=== PATIENT | female | born 1960 | race Caucasian/White ===

== ENCOUNTER 2018-03-30 13:06 | Inpatient (IN) | payer SELFPAY ==
[~2018-03-30 13:06] MED LIST: SUCCINYLCHOLINE CHLORIDE INJ 200 MG/10 ML VIAL ONE
[2018-03-30] MEDS ORDERED: ONDANSETRON HCL INJ/PF 4 MG/2 ML SDV IV ONE (15:21)
[2018-03-30] MEDS ORDERED: MORPHINE SULFATE 10 MG/ML INJ IV ONE (15:21)
[2018-03-30] MEDS ORDERED: NORMAL SALINE 1000 ML 1,000 ML IV ONE ×2 (15:21→19:56)
--- NOTE | 2018-03-30 15:23 | ER Document Report ---
ED Medical Screen (RME) - General Chief Complaint: Rectal Bleeding Stated Complaint: ABDOMINAL/BACK PAIN Time Seen by Provider: 03/30/18 15:15 Mode of Arrival: Wheelchair Information source: Patient Notes: Patient is a 57-year-old female who presents with chief complaint of left lower quadrant and left flank pain that started at 3 AM. Patient reports it has progressively gotten worse through the day. Patient denies any constipation, reports normal bowel movement yesterday but reports that it was dark in color. Patient denies any history of hemorrhoids. Patient reports when she urinated today she saw some bright red blood on the toilet paper she believes this was from her rectum. Patient also reports associated nausea and vomiting. Patient denies any history of abdominal surgeries, denies any fever. Patient also reports that she is having some urgency and frequency but denies any dysuria. Exam: Left CVA tenderness. I have greeted and performed a rapid initial assessment of this patient. A comprehensive ED assessment and evaluation of the patient, analysis of test results and completion of the medical decision making process will be conducted by additional ED providers. Dictation of this chart was performed using voice recognition software; therefore, there may be some unintended grammatical errors. TRAVEL OUTSIDE OF THE [place] IN LAST 30 DAYS: No - Related Data Allergies/Adverse Reactions: sulfamethoxazole [From [facility]] Allergy (Verified 03/30/18 13:09) trimethoprim [From [facility]] Allergy (Verified 03/30/18 13:09) Past Medical History - Social History Chew tobacco use (# tins/day): No Frequency of alcohol use: None Drug Abuse: None Pulmonary Medical History: Reports: Hx COPD Renal/ Medical History: Denies: Hx Peritoneal Dialysis Psychiatric Medical History: Reports: Hx Bipolar Disorder, Hx Depression Physical Exam - Vital signs Vitals: Temp Pulse Resp BP Pulse Ox 97.5 F 123 H 20 183/98 H 94 03/30/18 13:55 03/30/18 13:55 03/30/18 13:55 03/30/18 13:55 03/30/18 13:55 Course - Vital Signs Vital signs: Temp Pulse Resp BP Pulse Ox 97.5 F 123 H 20 183/98 H 94 03/30/18 13:55 03/30/18 13:55 03/30/18 13:55 03/30/18 13:55 03/30/18 13:55
[2018-03-30 16:25] LABS: ABSOLUTE LYMPHOCYTES (AUTO) 2.7 10^3/uL (0.5-4.7); ABSOLUTE MONOCYTES (AUTO) 0.9 10^3/uL (0.1-1.4); ABSOLUTE NEUT (AUTO) 13.7 10^3/uL (1.7-8.2); BASOPHILS % (AUTO) 0.2 % (0-2); EOSINOPHILS % (AUTO) 0.1 % (0-6); HEMATOCRIT 41.8 % (36.0-47.0); LYMPHOCYTES % (AUTO) 15.6 % (13-45); MEAN CORPUSCULAR HEMOGLOBIN 29.1 pg (27.0-33.4); MEAN CORPUSCULAR HGB CONC 33.6 g/dL (32.0-36.0); MEAN CORPUSCULAR VOLUME 87 fl (80-97); MONOCYTES % (AUTO) 5.2 % (3-13); PLATELET COUNT 417 10^3/uL (150-450); RED BLOOD COUNT 4.83 10^6/uL (3.72-5.28); RED CELL DISTRIBUTION WIDTH 14.9 % (11.5-14.0); SEGMENTED NEUTROPHILS % (AUTO) 78.9 % (42-78); TOTAL CELLS COUNTED % (AUTO) 100 %; WHITE BLOOD COUNT 17.3 10^3/uL (4.0-10.5)
[2018-03-30 16:47] LABS: ALANINE AMINOTRANSFERASE 38 U/L (9-52); ALBUMIN 5.1 g/dL (3.5-5.0); ALKALINE PHOSPHATASE 137 U/L (38-126); ANION GAP 15 (5-19); ASPARTATE AMINO TRANSFERASE 32 U/L (14-36); BILIRUBIN,DIRECT 0.3 mg/dL (0.0-0.4); BILIRUBIN,TOTAL 0.7 mg/dL (0.2-1.3); BLOOD UREA NITROGEN 16 mg/dL (7-20); CALCIUM 10.6 mg/dL (8.4-10.2); CARBON DIOXIDE 18 mmol/L (22-30); CHLORIDE 107 mmol/L (98-107); GLUCOSE 123 mg/dL (75-110); LIPASE 172.2 U/L (23-300); POTASSIUM 4.8 mmol/L (3.6-5.0); SODIUM 140.1 mmol/L (137-145); TOTAL PROTEIN 7.9 g/dL (6.3-8.2)
[2018-03-30] MEDS ORDERED: FENTANYL CITRATE INJ/PF 100 MCG/2 ML AMPUL IV ONE (17:11)
--- NOTE | 2018-03-30 19:18 | RADIOLOGY REPORT (SQ) ---
EXAM DESCRIPTION: CT ABD/PELVIS WITH IV ONLY COMPLETED DATE/TIME: 03/30/2018 6:38 pm REASON FOR STUDY: LLQ pain, elevated WBC COMPARISON: None. TECHNIQUE: CT scan of the abdomen and pelvis performed using helical scanning technique with dynamic intravenous contrast injection. No oral contrast. Images reviewed with lung, soft tissue, and bone windows. Reconstructed coronal and sagittal MPR images reviewed. Delayed images for evaluation of the urinary system also acquired. All images stored on PACS. All CT scanners at this facility use dose modulation, iterative reconstruction, and/or weight based d osing when appropriate to reduce radiation dose to as low as reasonably achievable (ALARA). [facility]: Dose Right [facility]: CareDose [facility]: Dose Right [facility]: Teradose 4D [facility]: Nursenav CONTRAST TYPE AND DOSE: contrast/concentration: Isovue 350.00 mg/ml; Total Contrast Delivered: 85.0 ml; Total Saline Delivered: 69.0 ml RENAL FUNCTION: Creatinine 0.9 RADIATION DOSE: CT Rad equipment meets quality standard of care and radiation dose reduction techniq ues were employed. CTDIvol: 10.8 - 15.7 mGy. DLP: 1454 mGy-cm.. LIMITATIONS: None. FINDINGS: An 8 mm calculus is present in the left proximal ureter at about the level of the L3-4 dis c space. This causes moderate left hydronephrosis and hydroureter with perinephric stranding. Stone is best shown on coronal image 44 and axial image 47. Elsewhere in the left kidney, several tiny less than 3 mm intrarenal nonobstructive calculi are prese nt with a 1 cm left lower pole renal cortical. No left renal masses. No other ureteral stones on th e left. LOWER CHEST: Small hiatal hernia. LIVER: Normal size. No masses. No dilated ducts. SPLEEN: Normal size. No focal lesions. PANCREAS: No masses. No significant calcifications. No adjacent inflammation or peripancreatic fluid collections. Pancreatic duct not dilated. GALLBLADDER: No identified stones by CT criteria. No inflammatory changes to suggest cholecystitis. ADRENAL GLANDS: No significant masses or asymmetry. RIGHT KIDNEY AND URETER: No solid masses. Multiple right-sided intrarenal nonobstructive calculi 5 mm in size. No hydronephrosis or hydroureter. LEFT KIDNEY AND URETER: As above AORTA AND VESSELS: No aneurysm. No dissection. Renal arteries, SMA, celiac without stenosis. RETROPERITONEUM: No retroperitoneal adenopathy, hemorrhage or masses. BOWEL AND PERITONEAL CAVITY: No masses or inflammatory changes. No free fluid or peritoneal masses. APPENDIX: Normal. PELVIS: No mass. No free fluid. Normal bladder. ABDOMINAL WALL: No masses. No hernias. BONES: No significant or acute findings. OTHER: No other significant finding. IMPRESSION: 8 mm stone in the left proximal ureter causing moderate left hydronephrosis and hydroure ter. TECHNICAL DOCUMENTATION: JOB ID: [id number] Quality ID # [id number]: Final reports with documentation of one or more dose reduction techniques (e.g., Au tomated exposure control, adjustment of the mA and/or kV according to patient size, use of iterative reconstruction technique) 2010 [employer]- All Rights Reserved Reading location - IP/workstation name: [email or web address]
[2018-03-30] MEDS ORDERED: TAMSULOSIN HCL 0.4 MG CAP.SR.24H PO ONE (19:49)
[2018-03-30] MEDS ORDERED: KETOROLAC TROMETHAMINE INJ/PF 30 MG/1 ML SDV IV ONE (19:50)
--- NOTE | 2018-03-30 19:56 | ER Document Report ---
ED General - General Chief Complaint: Rectal Bleeding Stated Complaint: ABDOMINAL/BACK PAIN Time Seen by Provider: 03/30/18 15:15 Mode of Arrival: Wheelchair Information source: Patient Notes: 57-year-old female with COPD, bipolar disorder, depression presents with complaint of left flank and left lower quadrant pain that started 15 hours prior to arrival. Patient states that the flank pain started initially with gradual progression of radiation to the left lower quadrant. She describes it as a constant stabbing pain that intermittently worsens. Patient has had nausea without vomiting. She denies any fever, chills, chest pain, shortness of breath. She does admit to urinary frequency, urgency. She denies previous history of kidney stone. Patient states that she has taking Pepto-Bismol, Gas-X , Dramamine without relief. She has had prior similar symptoms about 2 months ago that self resolved. TRAVEL OUTSIDE OF THE [place] IN LAST 30 DAYS: No - HPI Onset: Yesterday Onset/Duration: Sudden, Persistent, Worse Quality of pain: Stabbing Severity: Moderate Associated symptoms: Nausea. denies: Chest pain, Fever, Shortness of breath Exacerbated by: Movement Relieved by: Denies Similar symptoms previously: Yes Recently seen / treated by doctor: No - Related Data Allergies/Adverse Reactions: sulfamethoxazole [From ] Allergy (Verified 03/30/18 13:09) trimethoprim [From [facility]] Allergy (Verified 03/30/18 13:09) Past Medical History - General Information source: Patient - Social History Smoking Status: Current Every Day Smoker Chew tobacco use (# tins/day): No Frequency of alcohol use: None Drug Abuse: None Lives with: Family Family History: Reviewed & Not Pertinent Patient has suicidal ideation: No Patient has homicidal ideation: No Pulmonary Medical History: Reports: Hx COPD Renal/ Medical History: Denies: Hx Peritoneal Dialysis Psychiatric Medical History: Reports: Hx Bipolar Disorder, Hx Depression Review of Systems - Review of Systems Notes: REVIEW OF SYSTEMS: CONSTITUTIONAL : Denies fever, chills, or sweats. Denies recent illness. Denies weight loss, recent hospitalizations. EENT: Denies visual changes, eye pain. Denies sore throat, oral lesions, difficulty swallowing. CARDIOVASCULAR: Denies chest pain. Denies palpitations. Denies lower extremity edema. RESPIRATORY: Denies cough. Denies shortness of breath, wheezing. GASTROINTESTINAL: Denies vomiting, or diarrhea. Denies blood in vomitus, stools, or per rectum. Denies black, tarry stools. Denies constipation. GENITOURINARY: Denies difficulty urinating, painful urination, blood in urine , or vaginal discharge. MUSCULOSKELETAL: Denies neck pain or stiffness. Denies joint pain or swelling. SKIN: Denies rash, lesions or sores. HEMATOLOGIC : Denies easy bruising or bleeding. LYMPHATIC: Denies swollen glands. NEUROLOGICAL: Denies confusion or altered mental status. Denies loss of consciousness. Denies dizziness or lightheadedness. Denies headache. Denies weakness or paralysis. Denies problems difficulty with ambulation, slurred speech. Denies sensory loss, numbness, or tingling. Denies seizures. PSYCHIATRIC: Denies anxiety or stress. Denies depression, suicidal ideation, or homicidal ideation. Denies visual or auditory hallucinations. Physical Exam - Vital signs Vitals: Temp Pulse Resp BP Pulse Ox 97.5 F 123 H 20 183/98 H 94 03/30/18 13:55 03/30/18 13:55 03/30/18 13:55 03/30/18 13:55 03/30/18 13:55 - Notes Notes: PHYSICAL EXAMINATION: GENERAL: Well-appearing, well-nourished and in no acute distress. HEAD: Atraumatic, normocephalic. EYES: Pupils equal round and reactive to light, extraocular movements intact, conjunctiva are normal. ENT: Nares patent, oropharynx clear without exudates. Moist mucous membranes. NECK: Normal range of motion, supple without lymphadenopathy LUNGS: Breath sounds clear to auscultation bilaterally and equal. No wheezes rales or rhonchi. HEART: Regular rate and rhythm without murmurs ABDOMEN: Lower quadrant tender with palpation.. No guarding, no rebound. No masses appreciated. Left CVA tenderness. Female : deferred Musculoskeletal: Normal range of motion, no pitting or edema. No cyanosis. NEUROLOGICAL: Cranial nerves grossly intact. Normal speech, normal gait. Normal sensory, motor exams PSYCH: Normal mood, normal affect. SKIN: Warm, Dry, normal turgor, no rashes or lesions noted. Course - Re-evaluation Re-evalutation: Laboratory 03/30/18 03/30/18 03/30/18 15:26 15:26 15:46 WBC 17.3 H RBC 4.83 Hgb 14.0 Hct 41.8 MCV 87 MCH 29.1 MCHC 33.6 RDW 14.9 H Plt Count 417 Seg Neutrophils % 78.9 H Lymphocytes % 15.6 Monocytes % 5.2 Eosinophils % 0.1 Basophils % 0.2 Absolute Neutrophils 13.7 H Absolute Lymphocytes 2.7 Absolute Monocytes 0.9 Absolute Eosinophils 0.0 Absolute Basophils 0.0 PT INR APTT Sodium 140.1 Potassium 4.8 Chloride 107 Carbon Dioxide 18 L Anion Gap 15 BUN 16 Creatinine 0.90 Est GFR ( Amer) > 60 Est GFR (Non-Af Amer) > 60 Glucose 123 H Calcium 10.6 H Total Bilirubin 0.7 Direct Bilirubin 0.3 Neonat Total Bilirubin Not Reportable Neonat Direct Bilirubin Not Reportable Neonat Indirect Bili Not Reportable AST 32 ALT 38 Alkaline Phosphatase 137 H Total Protein 7.9 Albumin 5.1 H Lipase 172.2 Urine Color MATT Urine Appearance TURBID Urine pH 5.0 Ur Specific [place] 1.032 Urine Protein 100 H Urine Glucose (UA) NEGATIVE Urine Ketones NEGATIVE Urine Blood NEGATIVE Urine Nitrite NEGATIVE Urine Bilirubin NEGATIVE Urine Urobilinogen NEGATIVE Ur Leukocyte Esterase TRACE H Urine WBC (Auto) 4 Urine RBC (Auto) 18 U Hyaline Cast (Auto) 3 Squamous Epi Cells Auto 1 Calcium Oxalate Cr Auto TOO NUMEROUS TO CNT Urine Mucus (Auto) FEW Urine Ascorbic Acid 40 H Urine Opiates Screen Urine Methadone Screen Ur Barbiturates Screen Ur Phencyclidine Scrn Ur Amphetamines Screen U Benzodiazepines Scrn Urine Cocaine Screen U Marijuana (THC) Screen 03/30/18 03/30/18 15:46 21:16 WBC RBC Hgb Hct MCV MCH MCHC RDW Plt Count Seg Neutrophils % Lymphocytes % Monocytes % Eosinophils % Basophils % Absolute Neutrophils Absolute Lymphocytes Absolute Monocytes Absolute Eosinophils Absolute Basophils PT 13.4 INR 0.97 APTT 27.9 Sodium Potassium Chloride Carbon Dioxide Anion Gap BUN Creatinine Est GFR ( Amer) Est GFR (Non-Af Amer) Glucose Calcium Total Bilirubin Direct Bilirubin Neonat Total Bilirubin Neonat Direct Bilirubin Neonat Indirect Bili AST ALT Alkaline Phosphatase Total Protein Albumin Lipase Urine Color Urine Appearance Urine pH Ur Specific [place] Urine Protein Urine Glucose (UA) Urine Ketones Urine Blood Urine Nitrite Urine Bilirubin Urine Urobilinogen Ur Leukocyte Esterase Urine WBC (Auto) Urine RBC (Auto) U Hyaline Cast (Auto) Squamous Epi Cells Auto Calcium Oxalate Cr Auto Urine Mucus (Auto) Urine Ascorbic Acid Urine Opiates Screen NEGATIVE Urine Methadone Screen NEGATIVE Ur Barbiturates Screen NEGATIVE Ur Phencyclidine Scrn NEGATIVE Ur Amphetamines Screen NEGATIVE U Benzodiazepines Scrn NEGATIVE Urine Cocaine Screen NEGATIVE U Marijuana (THC) Screen NEGATIVE Abdomen/Pelvis CT 03/30/18 17:10 IMPRESSION: 8 mm stone in the left proximal ureter causing moderate left hydronephrosis and hydroureter. 57-year-old female presents with complaint of left flank and left lower quadrant pain that started 1 day prior to arrival. Patient had associated nausea without vomiting. Vital signs reviewed upon arrival and patient is found to be mildly tachycardic but afebrile and not hypoxic. Patient does appear to be in significant pain. CBC does show a leukocytosis of 17. CMP is without any significant laboratory abnormalities. Urinalysis shows no infection. CT of the abdomen and pelvis does show an 8 mm stone in the proximal ureter causing moderate hydronephrosis and hydroureter. Patient received fentanyl, Toradol, Flomax, IV fluids. EKG was obtained prior to transfer to the OR. Patient accepted by the hospitalist for admission and transferred to the OR in stable condition. Last food intake was greater than 12 hours prior to arrival. 03/30/18 20:[address] Eid urology physical integration practitioner who agrees to consult on the patient. He states that he will call the OR to arrange for stent placement. Patient has been accepted by the hospitalist Dr. Godfrey 03/31/18 04:26 03/31/18 04:26 03/31/18 04:28 - Vital Signs Vital signs: Temp Pulse Resp BP Pulse Ox 98.3 F 105 H 18 119/77 98 03/31/18 01:34 03/31/18 01:34 03/31/18 01:34 03/31/18 01:34 03/31/18 01:34 - Laboratory Result Diagrams: 03/30/18 15:26 03/30/18 15:26 Laboratory results interpreted by me: 03/30/18 03/30/18 03/30/18 15:26 15:26 15:46 WBC 17.3 H RDW 14.9 H Seg Neutrophils % 78.9 H Absolute Neutrophils 13.7 H Carbon Dioxide 18 L Glucose 123 H Calcium 10.6 H Alkaline Phosphatase 137 H Albumin 5.1 H Urine Protein 100 H Ur Leukocyte Esterase TRACE H Urine Ascorbic Acid 40 H - Diagnostic Test Radiology reviewed: Image reviewed, Reports reviewed - EKG Interpretation by Me EKG shows normal: Sinus rhythm Rate: Normal Rhythm: NSR Discharge - Discharge Clinical Impression: Hydroureter, Calcium urolithiasis, Flank pain, Tachycardia Hydronephrosis Qualifiers: Hydronephrosis type: unspecified Qualified Code(s): N13.30 - Unspecified hydronephrosis Hypertension Qualifiers: Hypertension type: unspecified Qualified Code(s): I10 - Essential (primary) hypertension Leukocytosis Qualifiers: Leukocytosis type: unspecified Qualified Code(s): D72.829 - Elevated white blood cell count, unspecified Condition: Good Disposition: ADMITTED OBSERVATION Admitting Provider: Hospitalist Unit Admitted: Surgical Floor
[2018-03-30 20:15] LABS: APPEARANCE,URINE TURBID; BILIRUBIN,URINE NEGATIVE (NEGATIVE); CALCIUM OXALATE CRYSTALS,URINE TOO NUMEROUS TO CNT /HPF; COLOR,URINE AMBER; GLUCOSE, URINE NEGATIVE (NEGATIVE); KETONES,URINE NEGATIVE (NEGATIVE); LEUKOCYTE ESTERASE,URINE TRACE (NEGATIVE); NITRITE,URINE NEGATIVE (NEGATIVE); PROTEIN,URINE 100 mg/dL (NEGATIVE); URINE SPECIFIC GRAVITY 1.032; UROBILINOGEN,URINE NEGATIVE mg/dL (<2.0)
[2018-03-30] MEDS ORDERED: OXYCODONE-ACETAMINOPHEN 5-325 MG TABLET PO PRN (21:06)
[2018-03-30] MEDS ORDERED: NORMAL SALINE 1000 ML 1,000 ML IV PRN (21:06)
[2018-03-30] MEDS ORDERED: PROMETHAZINE HCL INJ 25 MG/1 ML VIAL IV PRN ×2 (21:06→22:59)
[2018-03-30] MEDS ORDERED: PROMETHAZINE HCL 25 MG TABLET PO PRN (21:06)
[2018-03-30] MEDS ORDERED: MAG HYDROX/AL HYDROX/SIMETH SUSP 30 ML UDCUP PO PRN (21:06)
[2018-03-30] MEDS ORDERED: KETOROLAC TROMETHAMINE INJ/PF 30 MG/1 ML SDV IV PRN (21:13)
[2018-03-30 21:30] LABS: INTERNATIONAL RATION (INR) 0.97; PARTIAL THROMBOPLASTIN TIME 27.9 SEC (23.5-35.8); PROTHROMBIN TIME 13.4 SEC (11.4-15.4)
--- NOTE | 2018-03-30 21:33 | PDOC H&P ---
History of Present Illness Admission Date/PCP: 03/30/18 20:53 Patient complains of: abdominal pain History of Present Illness: GIOVANY ENGEL is a 57 year old female who comes to the emergency department complaining of left flank pain and abdominal pain. Patient tells me that she woke up at 2 in the morning with left flank pain radiated to the left lower quadrant, cramping nature, went up to 10/10 intensity, initially felt like gas pain, she had Gas-X in the morning, the pain did not improved. At some point the pain was so intense that she could not stand up could not lay down. Symptoms were associated with dysuria and frequency for the last 2 days, denies hematuria. Denies any history of kidney stones. CT abdomen and pelvis in the ED shows 8 mm left kidney stone in the proximal ureter with hydronephrosis. Dr. Eid from the urology department is aware of the patient and will come and take her to the OR overnight. Denies fever, chills, shortness of breath, chest pain, dizziness, lightheadedness. Tells me that she had one melanotic stool 2 days ago around 4 PM, semisolid, denies any history of GI bleeding, hemoglobin and hematocrit this is stable. 2 L of IV fluids given in the ED. Urinalysis positive for infection. Past Medical History Cardiac Medical History: Reports: Myocardial Infarction - Massive SD secondary to drug overdose, no stents placed Pulmonary Medical History: Reports: Chronic Obstructive Pulmonary Disease (COPD) Psychiatric Medical History: Reports: Bipolar Disorder, Depression Past Surgical History Past Surgical History: Reports: Other - Cataract surgery Social History Information Source: Patient Lives with: Family Smoking Status: Current Every Day Smoker - Patient quit smoking for 7 years, resume smoking habit, 1 pack last for 7 days Frequency of Alcohol Use: Occasional Hx Recreational Drug Use: Yes Drugs: Cocaine - Crack cocaine, denies IV drug abuse. Quit 15 years ago Family History Family History: Reviewed & Not Pertinent Parental Family History Reviewed: No Children Family History Reviewed: NA Sibling(s) Family History Reviewed.: NA Medication/Allergy Home Medications: Lamotrigine 100 mg PO BID 12/10/14 Mirtazapine 30 mg PO PRN PRN 12/10/14 Prochlorperazine Maleate [Compazine] 5 mg PO BID PRN 12/10/14 Quetiapine Fumarate [Seroquel] 25 mg PO PRN PRN 12/10/14 Quetiapine Fumarate [Seroquel] 300 mg PO DAILYP 12/10/14 Venlafaxine HCl [Effexor 75 mg Tablet] 75 mg PO DAILY 12/10/14 Venlafaxine HCl [Effexor 75 mg Tablet] 150 mg PO DAILY 12/10/14 Ciprofloxacin HCl [Cipro 500 mg Tablet] 500 mg PO BID #6 tablet 12/13/14 Hydroxyzine Pamoate [Vistaril 50 mg Capsule] 50 mg PO Q6HP PRN #30 capsule 12/13 Mirtazapine [Remeron 15 mg Tablet] 15 mg PO Q12H #30 tablet 12/13/14 Allergies/Adverse Reactions: sulfamethoxazole [From [facility]] Allergy (Verified 03/30/18 13:09) trimethoprim [From [facility]] Allergy (Verified 03/30/18 13:09) Review of Systems Review of Systems: As outlined in the HPI, others negative Physical Exam Vital Signs: Temp Pulse Resp BP Pulse Ox 97.5 F 123 H 20 183/98 H 94 03/30/18 13:55 03/30/18 13:55 03/30/18 13:55 03/30/18 13:55 03/30/18 13:55 Additional comments: General appearance: Well-developed, well-nourished, alert and cooperative, and appears to be in no acute distress Head: Normocephalic Eyes: PEERL, EOMI, vision is grossly intact. Ears: External auditory canal and tympanic membranes clear, hearing grossly intact. Nose: No nasal discharge. Throat: Oral cavity and pharynx normal. No inflammation, swelling, exudate or lesions. Neck: Neck supple, nontender without lymphadenopathy, masses or thyromegaly. Cardiac: Normal S1 and S2. No S3, S4 or murmurs. Rhythm is regular. There is no peripheral edema, cyanosis or pallor. Extremities are warm and well perfused. Capillary refill is less than 2 seconds. No carotid bruits. Lungs: Clear to auscultation and percussion without rales, rhonchi, wheezing or diminished breath sounds. Not using accessory muscles. Abdomen: Positive bowel sounds. Soft. Nondistended, tenderness in the left infraumbilical area. No guarding or rebound. No masses. No hepatosplenomegaly. Mild CVA tenderness in the left flank. Extremities: No significant deformity or joint abnormality. No edema. Peripheral pulses intact. No varicosities. Neurological: Cranial nerves II through XII grossly intact. Strength and sensation symmetric and intact throughout. Reflexes 2+ throughout. Skin: Skin normal color, texture and turgor with no lesions or eruptions, warm and dry. Psychiatric: The mental examination revealed the patient was oriented to person , place, and time. The patient was able to demonstrate good judgment on recent , without hallucinations, abnormal affect or abnormal behaviors. Results Laboratory Results: 03/30/18 03/30/18 03/30/18 15:26 15:26 15:46 WBC 17.3 H RBC 4.83 Hgb 14.0 Hct 41.8 MCV 87 MCH 29.1 MCHC 33.6 RDW 14.9 H Plt Count 417 Seg Neutrophils % 78.9 H Lymphocytes % 15.6 Monocytes % 5.2 Eosinophils % 0.1 Basophils % 0.2 Absolute Neutrophils 13.7 H Absolute Lymphocytes 2.7 Sodium 140.1 Potassium 4.8 Chloride 107 Carbon Dioxide 18 L Anion Gap 15 BUN 16 Creatinine 0.90 Est GFR ( Amer) > 60 Est GFR (Non-Af Amer) > 60 Glucose 123 H Calcium 10.6 H Total Bilirubin 0.7 Direct Bilirubin 0.3 AST 32 ALT 38 Alkaline Phosphatase 137 H Total Protein 7.9 Albumin 5.1 H Lipase 172.2 Urine Color MATT Urine Appearance TURBID Urine pH 5.0 Ur Specific [place] 1.032 Urine Protein 100 H Urine Glucose (UA) NEGATIVE Urine Ketones NEGATIVE Urine Blood NEGATIVE Urine Nitrite NEGATIVE Urine Bilirubin NEGATIVE Urine Urobilinogen NEGATIVE Ur Leukocyte Esterase TRACE H Urine WBC (Auto) 4 Urine RBC (Auto) 18 U Hyaline Cast (Auto) 3 Squamous Epi Cells Auto 1 Calcium Oxalate Cr Auto TOO NUMEROUS TO CNT Urine Mucus (Auto) FEW Urine Ascorbic Acid 40 H Impressions: Abdomen/Pelvis CT 03/30/18 17:10 IMPRESSION: 8 mm stone in the left proximal ureter causing moderate left hydronephrosis and hydroureter. Assessment & Plan - Diagnosis (1) Calculus of left kidney Is this a current diagnosis for this admission?: Yes Plan: Patient comes with sudden symptoms since starting the morning. Complains of left flank pain radiated to the left lower quadrant, images consistent with a millimeters left ureteral stone. Dr. Eid from the urology department [facility] We will keep her on IV fluids. IV Rocephin. IV antiemetics and pain medication as needed. (2) UTI (urinary tract infection) Qualifiers: Hematuria presence: with hematuria Is this a current diagnosis for this admission?: Yes Plan: Patient will continue on IV Rocephin. Please follow urine cultures. (3) Melena Is this a current diagnosis for this admission?: Yes Plan: Patient states that 2 days ago she had an episode of large melanotic stools/ tarry stools. The patient does not have any history of GI bleeding and her hemoglobin and hematocrit are stable. We will send stool guaiac. No further intervention for now. Will recheck CBC in the morning. - Time Time Spent: 30 to 50 Minutes - Inpatient Certification Based on my medical assessment, after consideration of the patient's comorbidities, presenting symptoms, or acuity I expect that the services needed warrant INPATIENT care.: Yes I certify that my determination is in accordance with my understanding of Medicare's requirements for reasonable and necessary INPATIENT services [42 CFR 412.3e].: Yes Medical Necessity: Risk of Complication if Not Cared For in Hospital
[2018-03-30] MEDS ORDERED: MIDAZOLAM 2 MG/2 ML INJ ONE (21:38)
[2018-03-30] MEDS ORDERED: PROPOFOL INJ 200 MG/20 ML VIAL IV ONE (21:38)
[2018-03-30] MEDS ORDERED: FENTANYL CITRATE INJ/PF 100 MCG/2 ML AMPUL ONE (21:38)
[2018-03-30 21:51] LABS: URINE AMPHETAMINES SCREEN NEGATIVE; URINE BARBITURATES SCREEN NEGATIVE; URINE BENZODIAZEPINES SCREEN NEGATIVE; URINE COCAINE SCREEN NEGATIVE; URINE MARIJUANA (THC) SCREEN NEGATIVE; URINE METHADONE SCREEN NEGATIVE; URINE PHENCYCLIDINE SCREEN NEGATIVE
[2018-03-30] MEDS ORDERED: LIDOCAINE 2% JELLY 30 ML TUBE ONE (22:02)
[2018-03-30] MEDS ORDERED: CEFTRIAXONE INJ 1000 MG VIAL ONE (22:11)
[2018-03-30] MEDS ORDERED: ALBUTEROL SULFATE HFA (90 MCG/PUFF) 200 PUFF/8.5 GM MDI IH ONE (22:26)
--- NOTE | 2018-03-30 22:54 | PDOC CONSULTATION ---
Consultation Consult Date: 03/30/18 Attending physician:: ROBERT LIND History of Present Illness Admission Date/PCP: 03/30/18 20:53 History of Present Illness: GIOVANY ENGEL is a 57 year old female Past Medical History Cardiac Medical History: Reports: Myocardial Infarction - Massive CA secondary to drug overdose, no stents placed Pulmonary Medical History: Reports: Chronic Obstructive Pulmonary Disease (COPD) Psychiatric Medical History: Reports: Bipolar Disorder, Depression Past Surgical History Past Surgical History: Reports: Other - Cataract surgery Social History Lives with: Family Smoking Status: Current Every Day Smoker - Patient quit smoking for 7 years, resume smoking habit, 1 pack last for 7 days Frequency of Alcohol Use: Occasional Hx Recreational Drug Use: Yes Drugs: Cocaine - Crack cocaine, denies IV drug abuse. Quit 15 years ago - Advance Directive Resuscitation Status: Full Code Family History Family History: Reviewed & Not Pertinent Parental Family History Reviewed: No Children Family History Reviewed: No Sibling(s) Family History Reviewed.: No Medication/Allergy Home Medications: Lamotrigine 100 mg PO BID 12/10/14 Mirtazapine 30 mg PO PRN PRN 12/10/14 Prochlorperazine Maleate [Compazine] 5 mg PO BID PRN 12/10/14 Quetiapine Fumarate [Seroquel] 25 mg PO PRN PRN 12/10/14 Quetiapine Fumarate [Seroquel] 300 mg PO DAILYP 12/10/14 Venlafaxine HCl [Effexor 75 mg Tablet] 75 mg PO DAILY 12/10/14 Venlafaxine HCl [Effexor 75 mg Tablet] 150 mg PO DAILY 12/10/14 Ciprofloxacin HCl [Cipro 500 mg Tablet] 500 mg PO BID #6 tablet 12/13/14 Hydroxyzine Pamoate [Vistaril 50 mg Capsule] 50 mg PO Q6HP PRN #30 capsule 12/13 Mirtazapine [Remeron 15 mg Tablet] 15 mg PO Q12H #30 tablet 12/13/14 Allergies/Adverse Reactions: sulfamethoxazole [From Septra] Allergy (Verified 03/30/18 13:09) trimethoprim [From Septra] Allergy (Verified 03/30/18 13:09) Physical Exam Vital Signs: Temp Pulse Resp BP Pulse Ox 98.8 F 106 H 20 119/68 100 03/30/18 21:51 03/30/18 21:51 03/30/18 21:51 03/30/18 21:51 03/30/18 21:51 Intake & Output 03/29/18 03/30/18 03/31/18 06:59 06:59 06:59 Intake Total 1000 Balance 1000 Results Impressions: Abdomen/Pelvis CT 03/30/18 17:10 IMPRESSION: 8 mm stone in the left proximal ureter causing moderate left hydronephrosis and hydroureter. Assessment & Plan - Diagnosis (1) Hydronephrosis Qualifiers: Hydronephrosis type: unspecified Qualified Code(s): N13.30 - Unspecified hydronephrosis Is this a current diagnosis for this admission?: Yes - Plan Summary Plan Summary: Patient will be admitted and taken to the operating room with insertion of double-J on the left side because of the elevated white count and shift to the left and severe hydronephrosis with parenchymal changes around the kidney and nausea vomiting pain
--- NOTE | 2018-03-30 22:56 | Operative Report ---
Operative Report DATE OF SURGERY: 03/30/18 Operative Report: Cystoscopy left retrograde and insertion of double-J catheter on the left side. PREOPERATIVE DIAGNOSIS: Obstructed left ureteral stone with elevation of white count POSTOPERATIVE DIAGNOSIS: same OPERATION: See procedure cystoscopy insertion of double-J on the left side SURGEON: ROBERT LIND ANESTHESIA: GA TISSUE REMOVED OR ALTERED: None COMPLICATIONS: None ESTIMATED BLOOD LOSS: 0 PROCEDURE: With the patient in the supine position after induction of general anesthesia the whole area prepped and scrubbed in lithotomy position. After that #21 cystoscope sheath was inserted under direct vision bladder inspected normal left orifice identified guidewire was inserted over #5 urethral catheter was then retrograde was done and then after that 246 double-J catheter was inserted on the left side this was monitored with fluoroscopy and it was in good position in the renal pelvis and in the ureter and the bladder. After that the bladder was emptied double-J was kept and the patient tolerated procedure well.
[2018-03-30] MEDS ORDERED: DIPHENHYDRAMINE HCL 50 MG/ML VIAL IV PRN (22:59)
[2018-03-30] MEDS ORDERED: MEPERIDINE HCL/PF INJ 25 MG/1 ML DISP.SYRIN IV PRN (22:59)
[2018-03-30] MEDS ORDERED: FENTANYL CITRATE INJ/PF 100 MCG/2 ML AMPUL IV PRN ×3 (22:59)
[2018-03-30] MEDS ORDERED: DEXTROSE 5%-LACTATED RINGERS 1,000 ML IV PRN (23:30)
[2018-03-31] MEDS ORDERED: CEFTRIAXONE 1 GM/D5W RTU 1 GM/50 ML RTUPB IV ONE
[2018-03-31] MEDS: HEPARIN SOD (PORCINE) 5,000 UNIT/ML 1 ML SYRINGE SUBCUT SCH ×4 (00:17→21:24)
[2018-03-31] MEDS ORDERED: CEFTRIAXONE INJ 500 MG VIAL ONE (01:12)
[2018-03-31 07:55] LABS: ABSOLUTE EOSINOPHILS # (AUTO) 0.1 10^3/uL (0.0-0.6); ABSOLUTE LYMPHOCYTES (AUTO) 2.7 10^3/uL (0.5-4.7); ABSOLUTE MONOCYTES (AUTO) 0.5 10^3/uL (0.1-1.4); ABSOLUTE NEUT (AUTO) 3.7 10^3/uL (1.7-8.2); BASOPHILS % (AUTO) 0.1 % (0-2); EOSINOPHILS % (AUTO) 0.8 % (0-6); HEMATOCRIT 34.9 % (36.0-47.0); LYMPHOCYTES % (AUTO) 39.3 % (13-45); MEAN CORPUSCULAR HEMOGLOBIN 29.2 pg (27.0-33.4); MEAN CORPUSCULAR HGB CONC 33.5 g/dL (32.0-36.0); MEAN CORPUSCULAR VOLUME 87 fl (80-97); MONOCYTES % (AUTO) 6.9 % (3-13); PLATELET COUNT 265 10^3/uL (150-450); RED CELL DISTRIBUTION WIDTH 14.9 % (11.5-14.0); SEGMENTED NEUTROPHILS % (AUTO) 52.9 % (42-78); TOTAL CELLS COUNTED % (AUTO) 100 %; WHITE BLOOD COUNT 6.9 10^3/uL (4.0-10.5)
[2018-03-31 07:57] LABS: HEMOGLOBIN 11.7 g/dL (12.0-15.5)
[2018-03-31 08:01] LABS: ANION GAP 8 (5-19); BLOOD UREA NITROGEN 10 mg/dL (7-20); CALCIUM 8.6 mg/dL (8.4-10.2); CARBON DIOXIDE 24 mmol/L (22-30); CHLORIDE 109 mmol/L (98-107); GLUCOSE 93 mg/dL (75-110); SODIUM 140.6 mmol/L (137-145)
[2018-03-31 08:16] LABS: POTASSIUM 3.5 mmol/L (3.6-5.0)
--- NOTE | 2018-03-31 08:55 | EKG REPORT ---
SEVERITY:- OTHERWISE NORMAL ECG - SINUS TACHYCARDIA : Confirmed by: Shelby Pantoja MD 31-Mar-2018 08:54:33
--- NOTE | 2018-03-31 09:27 | RADIOLOGY REPORT (SQ) ---
EXAM DESCRIPTION: PYELOGRAM RETROGRADE COMPLETED DATE/TIME: 03/30/2018 10:58 pm REASON FOR STUDY: LEFT RETROGRADE PYELOGRAM STENT PLCMT IN CYSTO COMPARISON: CT abdomen pelvis 03/30/2018 FLUOROSCOPY TIME: 17 seconds 6 digital radiographic images saved to PACS. TECHNIQUE: Intra-operative images acquired during surgical procedure to evaluate progress. NUMBER OF IMAGES: 6 digital radiographic images saved to pacs LIMITATIONS: None. FINDINGS: Intra procedural imaging and fluoroscopy during left-sided retrograde injection, stone rem oval, and double-J ureteral stent placement. Final film demonstrates stent in place and resolved hyd ronephrosis. IMPRESSION: Cysto images during left double-J ureteral stent placement COMMENT: Quality ID [id number]: Final reports for procedures using fluoroscopy that document radiation exp osure indices, or exposure time and number of fluorographic images (if radiation exposure indices are not available) Please consult full operative report of the attending physician for description of the procedure. TECHNICAL DOCUMENTATION: JOB ID: [id number] [employer]- All Rights Reserved Reading location - IP/workstation name: [email or web address]
[2018-03-31] MEDS ORDERED: ONDANSETRON HCL INJ/PF 4 MG/2 ML SDV IV PRN ×2 (12:31→15:30)
[2018-03-31] MEDS ORDERED: TRAZODONE HCL 50 MG TABLET PO PRN (12:32)
[2018-03-31] MEDS ORDERED: NORMAL SALINE 1000 ML 1,000 ML IV PRN (15:09)
--- NOTE | 2018-03-31 15:27 | PDOC PROGRESS REPORT ---
Subjective Progress Note for:: 03/31/18 Subjective:: Patient still has nausea, still has some suprapubic pain but is overall improved. She was able to eat some broth today without vomiting. She is feeling weak and is only walking to the restroom has not gotten out into the hallway yet. He had an episode of dark diarrhea. Her nurse states that it was not black however her fecal occult blood test was positive. Reports no blood tinged urine. No chest pain or difficulty breathing. No fever or chills. Patient tells me in the past she had a problem with opioid pain medication addiction and she does not want to use these medications. Reason For Visit: LEFT KIDNEY STONE Physical Exam Vital Signs: Temp Pulse Resp BP Pulse Ox 98.3 F 104 H 18 109/69 100 03/31/18 11:14 03/31/18 11:14 03/31/18 11:14 03/31/18 11:14 03/31/18 12:48 Intake & Output 03/30/18 03/31/18 04/01/18 06:59 06:59 06:59 Intake Total 1850 Output Total 300 Balance 1550 General appearance: PRESENT: cooperative, mild distress, obese Head exam: PRESENT: atraumatic Eye exam: ABSENT: conjunctival injection, scleral icterus Ear exam: PRESENT: normal external ear exam Mouth exam: PRESENT: neck supple Respiratory exam: PRESENT: clear to auscultation merritt, unlabored. ABSENT: rales , rhonchi, wheezes Cardiovascular exam: PRESENT: RRR. ABSENT: systolic murmur Pulses: PRESENT: normal radial pulses GI/Abdominal exam: PRESENT: normal bowel sounds, soft, tenderness. ABSENT: distended, firm, guarding Rectal exam: PRESENT: deferred Extremities exam: ABSENT: pedal edema Neurological exam: PRESENT: alert, awake, oriented to person, oriented to place , oriented to situation, CN II-XII grossly intact Psychiatric exam: PRESENT: anxious Skin exam: PRESENT: dry, intact, warm Results Laboratory Results: 03/31/18 06:45 03/31/18 06:45 03/31/18 03/31/18 03/31/18 06:45 06:45 08:10 WBC 6.9 RBC 4.00 Hgb 11.7 L D Hct 34.9 L MCV 87 MCH 29.2 MCHC 33.5 RDW 14.9 H Plt Count 265 Seg Neutrophils % 52.9 Lymphocytes % 39.3 Monocytes % 6.9 Eosinophils % 0.8 Basophils % 0.1 Absolute Neutrophils 3.7 Absolute Lymphocytes 2.7 Absolute Monocytes 0.5 Absolute Eosinophils 0.1 Absolute Basophils 0.0 Sodium 140.6 Potassium 3.5 L D Chloride 109 H Carbon Dioxide 24 Anion Gap 8 BUN 10 Creatinine 0.51 L Est GFR ( Amer) > 60 Est GFR (Non-Af Amer) > 60 Glucose 93 Calcium 8.6 Stool Occult Blood POSITIVE Impressions: Retrograde Pyelogram 03/30/18 00:00 IMPRESSION: Cysto images during left double-J ureteral stent placement Abdomen/Pelvis CT 03/30/18 17:10 IMPRESSION: 8 mm stone in the left proximal ureter causing moderate left hydronephrosis and hydroureter. Assessment & Plan - Diagnosis (1) Calculus of left kidney Is this a current diagnosis for this admission?: Yes Plan: Patient, around midnight, had a left-sided double-J stent placed. Symptoms are improving. Still has some flank and suprapubic pain. She will need close urology follow-up to have the stent and stone evaluated after discharge. Will use ibuprofen and Tylenol as needed for pain. Urologist has recommended several days of antibiotics due to instrumentation and evidence of infection on the urinalysis. We will continue ceftriaxone. (2) Fecal occult blood test positive Is this a current diagnosis for this admission?: Yes Plan: She has had several episodes of diarrhea in the last few days. Her nurse states that the diarrhea did not appear to be melena and was not black but was dark brown. It was fecal occult blood positive. She is not having epigastric pain. I have put her on pantoprazole 40 mg IV every 12 hours for now and we will monitor closely. C. difficile is also pending. Hemoglobin did drop but that was with hydration. Will follow hemoglobin closely. (3) Flank pain Is this a current diagnosis for this admission?: Yes Plan: Improving. Patient has a history of opioid use disorder. Will use Tylenol and ibuprofen as needed pain. (4) Diarrhea Is this a current diagnosis for this admission?: Yes Plan: Unclear etiology. Fecal occult blood positive. Please see above. C. difficile pending. (5) Hydronephrosis Qualifiers: Hydronephrosis type: unspecified Qualified Code(s): N13.30 - Unspecified hydronephrosis Is this a current diagnosis for this admission?: Yes Plan: Should improve with treatment of stone. Patient will need close follow-up with urology as an outpatient. Will follow renal function. - Time Time Spent with patient: 15-24 minutes Medications reviewed and adjusted accordingly: Yes Anticipated discharge: Home - Inpatient Certification Based on my medical assessment, after consideration of the patient's comorbidities, presenting symptoms, or acuity I expect that the services needed warrant INPATIENT care.: Yes I certify that my determination is in accordance with my understanding of Medicare's requirements for reasonable and necessary INPATIENT services [42 CFR 412.3e].: Yes Medical Necessity: Need For IV Fluids, Need for Pain Control
[2018-03-31] MEDS ORDERED: POTASSIUM CHLORIDE 10 MEQ CAPSULE.ER PO ONE (16:00)
[2018-03-31] MEDS: IBUPROFEN 800 MG TABLET PO PRN (16:29)
[2018-03-31] MEDS: PANTOPRAZOLE SODIUM 40 MG VIAL IV SCH (17:42)
[2018-03-31] MEDS ORDERED: CEFTRIAXONE SODIUM 1,000 MG in NORMAL SALINE 50 ML IV SCH (18:00)
[2018-03-31] MEDS ORDERED: CEFTRIAXONE 1 GM/D5W RTU 1 GM/50 ML RTUPB IV SCH (18:00)
[2018-03-31] MEDS: ACETAMINOPHEN 325 MG TABLET PO PRN (20:21)
[2018-04-01] MEDS: IBUPROFEN 800 MG TABLET PO PRN ×2 (00:58→12:28)
[2018-04-01] MEDS: PANTOPRAZOLE SODIUM 40 MG VIAL IV SCH ×2 (06:04→17:12)
[2018-04-01] MEDS: HEPARIN SOD (PORCINE) 5,000 UNIT/ML 1 ML SYRINGE SUBCUT SCH ×3 (06:05→22:00)
[2018-04-01] MEDS: ACETAMINOPHEN 325 MG TABLET PO PRN ×2 (06:12→19:49)
[2018-04-01 07:13] LABS: HEMATOCRIT 36.2 % (36.0-47.0); HEMOGLOBIN 12.3 g/dL (12.0-15.5); MEAN CORPUSCULAR HEMOGLOBIN 29.5 pg (27.0-33.4); MEAN CORPUSCULAR HGB CONC 34.1 g/dL (32.0-36.0); MEAN CORPUSCULAR VOLUME 87 fl (80-97); PLATELET COUNT 223 10^3/uL (150-450); RED BLOOD COUNT 4.18 10^6/uL (3.72-5.28); RED CELL DISTRIBUTION WIDTH 14.6 % (11.5-14.0); WHITE BLOOD COUNT 5.8 10^3/uL (4.0-10.5)
[2018-04-01 07:32] LABS: ANION GAP 9 (5-19); BLOOD UREA NITROGEN 8 mg/dL (7-20); CALCIUM 8.7 mg/dL (8.4-10.2); CARBON DIOXIDE 22 mmol/L (22-30); CHLORIDE 111 mmol/L (98-107); GLUCOSE 97 mg/dL (75-110); POTASSIUM 3.9 mmol/L (3.6-5.0); SODIUM 141.5 mmol/L (137-145)
[2018-04-01] MEDS ORDERED: QUETIAPINE FUMARATE 25 MG TABLET PO PRN (13:15)
[2018-04-01] MEDS ORDERED: OXYCODONE HCL IR 5 MG TABLET PO PRN (13:16)
--- NOTE | 2018-04-01 13:28 | PDOC PROGRESS REPORT ---
Subjective Progress Note for:: 04/01/18 Subjective:: Patient is overall feeling better though she is continuing to have some abdominal and left flank pain. She has watery diarrhea, no obvious blood, several times a day at this point. Some dysuria as well. No fevers or chills. No chest pain or difficulty breathing. She is having a hard time sleeping. She would like to ambulate in the hallways to try to regain some strength. Reason For Visit: LEFT KIDNEY STONE Physical Exam Vital Signs: Temp Pulse Resp BP Pulse Ox 98.0 F 106 H 16 147/85 H 100 04/01/18 11:50 04/01/18 11:50 04/01/18 11:50 04/01/18 11:50 04/01/18 11:50 Intake & Output 03/31/18 04/01/18 04/02/18 06:59 06:59 06:59 Intake Total 1850 4540 600 Output Total 300 400 200 Balance 1550 4140 400 General appearance: PRESENT: no acute distress, cooperative, obese Head exam: PRESENT: atraumatic, normocephalic Eye exam: ABSENT: conjunctival injection, scleral icterus Ear exam: PRESENT: normal external ear exam Respiratory exam: PRESENT: clear to auscultation merritt, unlabored. ABSENT: rales , rhonchi, wheezes GI/Abdominal exam: PRESENT: distended, normal bowel sounds, soft, tenderness. ABSENT: firm, guarding, rebound Rectal exam: PRESENT: deferred Gentrourinary exam: ABSENT: indwelling catheter Extremities exam: ABSENT: pedal edema Musculoskeletal exam: PRESENT: normal inspection Neurological exam: PRESENT: alert, awake, oriented to person, oriented to place , oriented to situation, CN II-XII grossly intact Psychiatric exam: PRESENT: appropriate affect. ABSENT: anxious Skin exam: PRESENT: dry, intact, warm Results Laboratory Results: 04/01/18 06:31 04/01/18 06:31 04/01/18 04/01/18 06:31 06:31 WBC 5.8 RBC 4.18 Hgb 12.3 Hct 36.2 MCV 87 MCH 29.5 MCHC 34.1 RDW 14.6 H Plt Count 223 Sodium 141.5 Potassium 3.9 Chloride 111 H Carbon Dioxide 22 Anion Gap 9 BUN 8 Creatinine 0.47 L Est GFR ( Amer) > 60 Est GFR (Non-Af Amer) > 60 Glucose 97 Calcium 8.7 Impressions: Retrograde Pyelogram 03/30/18 00:00 IMPRESSION: Cysto images during left double-J ureteral stent placement Abdomen/Pelvis CT 03/30/18 17:10 IMPRESSION: 8 mm stone in the left proximal ureter causing moderate left hydronephrosis and hydroureter. Assessment & Plan - Diagnosis (1) Calculus of left kidney Is this a current diagnosis for this admission?: Yes Plan: Patient has been taken to the OR by the urologist. She has a double-J stent in place that will need close follow-up after discharge. No sign of urinary tract infection at this time. She has been on 3 days of ceftriaxone and secondary to diarrhea I am going to stop her antibiotics. (2) Fecal occult blood test positive Is this a current diagnosis for this admission?: Yes Plan: Not entirely clear what happening here. Patient does have frequent diarrhea during the day. There is no gross blood. I am rechecking her fecal occult test just to assure that I am working with the right information. I started her on a twice daily PPI. Hemoglobin is stable. (3) Flank pain Is this a current diagnosis for this admission?: Yes Plan: Becomes intermittently severe and can radiate around to the abdomen. Patient has an opioid pain pill abuse history and is reluctant to use opioid pain medication but is asking if I can have that available in case the pain gets severe. I spoke with the patient and her daughter about the dangers of using this medication and daughter is aware, under no circumstances to they want to be discharged with opioid pain medication but agree that for now 5 mg of oxycodone every 8 hours as needed severe pain is reasonable. I have ordered this. (4) Diarrhea Is this a current diagnosis for this admission?: Yes Plan: Possibly due to antibiotics. Also patient has been off of her Lamictal and Effexor abruptly for the last few days and potentially this is causing some diarrhea. Those medications have been restarted. No sign of urinary tract infection and so antibiotics have been discontinued after 3 days. Working up fecal occult blood positive stool. Also have stopped her IV fluids as she is drinking without difficulty. Will monitor for dehydration given diarrhea. We will see her stools changed with discontinuation of antibiotics. If she continues with diarrhea and fecal occult blood positive status she may need colonoscopy. (5) Hydronephrosis Qualifiers: Hydronephrosis type: unspecified Qualified Code(s): N13.30 - Unspecified hydronephrosis Is this a current diagnosis for this admission?: Yes Plan: Secondary to kidney stone which has now been treated. Though patient will need close follow-up with urology as an outpatient. Renal function is normal. He is urinating clear yellow urine with a little bit of dysuria without difficulty passing the urine. (6) Insomnia Is this a current diagnosis for this admission?: Yes Plan: I started patient on her home dose of Seroquel 75 mg p.o. nightly as needed insomnia. (7) Depression Is this a current diagnosis for this admission?: Yes Plan: i have started the patient on her home dose of effexor - Time Time Spent with patient: 25-34 minutes Medications reviewed and adjusted accordingly: Yes Anticipated discharge: Home - Inpatient Certification Based on my medical assessment, after consideration of the patient's comorbidities, presenting symptoms, or acuity I expect that the services needed warrant INPATIENT care.: Yes I certify that my determination is in accordance with my understanding of Medicare's requirements for reasonable and necessary INPATIENT services [42 CFR 412.3e].: Yes Medical Necessity: Need Close Monitoring Due to Risk of Patient Decompensation, Risk of Complication if Not Cared For in Hospital
[2018-04-01] MEDS: LAMOTRIGINE 100 MG TABLET PO SCH (15:36)
[2018-04-01] MEDS ORDERED: (PENDING PHARMACY ID) (Quetiapine Fumarate [Seroquel] 75 MG) PO SCH (22:00)
[2018-04-02] MEDS: PANTOPRAZOLE SODIUM 40 MG VIAL IV SCH (05:35)
[2018-04-02] MEDS: IBUPROFEN 800 MG TABLET PO PRN (05:38)
[2018-04-02] MEDS ORDERED: VENLAFAXINE HCL 75 MG CAP.SR.24H PO SCH (08:00)
[2018-04-02 09:28] VITALS: BP 138/75
[2018-04-02] MEDS: LAMOTRIGINE 100 MG TABLET PO SCH (10:03)
--- NOTE | 2018-04-02 17:15 | PDOC DISCHARGE SUMMARY ---
General - Admit/Disc Date/PCP Admission Date/Primary Care Provider: 03/30/18 20:53 Discharge Date: 04/02/18 - Discharge Diagnosis (1) Calculus of left kidney Is this a current diagnosis for this admission?: Yes Summary: Patient was evaluated in the ER by the urologist who deemed that she had an operable kidney stone. She was taken to the OR and had cystoscopy and placement of the left double-J ureteral stent. She has struggled with some flank pain radiating around to the abdomen and also with some residual dysuria though it is getting better on the day of discharge. She has a history of opioid abuse and wants to minimize opioid use so I did not discharge her on any pain medications. She is instructed that she needs to see a urologist within a week for evaluation of the stent and we are helping her make that appointment. And we do not know where she will be when the appointment is due nonetheless we are helping her with a urology appointment. She was on several days of antibiotics during the hospitalization and no evidence of urinary tract infection so she was not discharged on antibiotics. (2) Fecal occult blood test positive Is this a current diagnosis for this admission?: Yes Summary: There etiology. Hemoglobin stable. I told the patient she needs to see her primary care doctor within 5 days after discharge with consideration for colonoscopy to further evaluate her microscopic fecal blood. (3) Flank pain Is this a current diagnosis for this admission?: Yes Summary: Patient was using ibuprofen and Tylenol with fairly good effect. She had 1 dose of oxycodone 5 mg. She was not discharged with any pain medications and will use ibuprofen and Tylenol as needed. She knows to return to medical care with worsening pain or other concerning symptoms. (4) Diarrhea Is this a current diagnosis for this admission?: Yes Summary: Patient had several days of diarrhea. After antibiotics were discontinued and she was started on her home Effexor and rectal her diarrhea stopped. This is probably medication induced diarrhea. (5) Hydronephrosis Is this a current diagnosis for this admission?: Yes Summary: Secondary to the stone. She has been informed that she will need close urology follow-up. She is urinating without difficulty, no evidence of obstruction. (6) Insomnia Is this a current diagnosis for this admission?: Yes Summary: Patient was started on her Seroquel 75 mg nightly as needed insomnia. (7) Depression Is this a current diagnosis for this admission?: Yes Summary: Patient was started on her Lamictal and Effexor and discharged on her regular home doses. - Additional Information Resuscitation Status: Full Code - Patient lives in [place] and does not know when she is going to be able to get back home. I wrote her 2 weeks worth of her home meds including Effexor or Lamictal and Seroquel. Discharge Diet: As Tolerated, Regular Discharge Activity: Activity As Tolerated, Balance Activity w/Rest, No Lifting Over 10 Pounds, No Lifting/Push/Pulling, No tub bath Prescriptions: Lamotrigine [Lamictal 100 mg Tablet] 200 mg PO QAM 14 Days #14 tablet Lamotrigine [Lamictal 100 mg Tablet] 200 mg PO QAM 14 Days #28 tablet Quetiapine Fumarate 50 mg PO QHS PRN 14 Days #28 tablet PRN Reason: Venlafaxine HCl ER [Effexor Xr 75 mg Cap.sr] 150 mg PO QAM 14 Days #28 cap.sr.24h Venlafaxine HCl [Venlafaxine HCl ER] 150 mg PO QAM 14 Days #14 cap.er.24h Home Medications: Lamotrigine [Lamictal 100 mg Tablet] 200 mg PO QAM 14 Days #14 tablet 04/02/18 Lamotrigine [Lamictal 100 mg Tablet] 200 mg PO QAM 14 Days #28 tablet 04/02/18 Quetiapine Fumarate 50 mg PO QHS PRN 14 Days #28 tablet 04/02/18 Venlafaxine HCl ER [Effexor Xr 75 mg Cap.sr] 150 mg PO QAM 14 Days #28 cap.sr.24h 04/02/18 Venlafaxine HCl [Venlafaxine HCl ER] 150 mg PO QAM 14 Days #14 cap.er.24h History of Present Illness Patient complains of: left flank pain History of Present Illness: GIOVANY ENGEL is a 57 year old woman who comes to the emergency department complaining of left flank pain and abdominal pain. Patient tells me that she woke up at 2 in the morning with left flank pain radiated to the left lower quadrant, cramping nature, went up to 10/10 intensity, initially felt like gas pain, she had Gas-X in the morning, the pain did not improved. At some point the pain was so intense that she could not stand up could not lay down. Symptoms were associated with dysuria and frequency for the last 2 days, denies hematuria. Denies any history of kidney stones. CT abdomen and pelvis in the ED shows 8 mm left kidney stone in the proximal ureter with hydronephrosis. Dr. Eid from the urology department is aware of the patient and will come and take her to the OR overnight. Denies fever, chills, shortness of breath, chest pain, dizziness, lightheadedness. Tells me that she had one melanotic stool 2 days ago around 4 PM, semisolid, denies any history of GI bleeding, hemoglobin and hematocrit this is stable. 2 L of IV fluids given in the ED. Urinalysis positive for possible infectn, culture ordered. Hospital Course Hospital Course: See problem list Physical Exam Vital Signs: Temp Pulse Resp BP Pulse Ox 97.9 F 90 14 138/75 H 97 04/02/18 13:41 04/02/18 13:41 04/02/18 13:41 04/02/18 13:41 04/02/18 13:41 Intake & Output 04/01/18 04/02/18 04/03/18 06:59 06:59 06:59 Intake Total 4540 2600 880 Output Total 400 1500 Balance 4140 1100 880 General appearance: PRESENT: no acute distress, cooperative, obese Eye exam: PRESENT: EOMI. ABSENT: conjunctival injection, scleral icterus Mouth exam: PRESENT: moist Respiratory exam: PRESENT: clear to auscultation merritt, unlabored. ABSENT: rales , rhonchi, wheezes Cardiovascular exam: PRESENT: RRR. ABSENT: systolic murmur Pulses: PRESENT: normal radial pulses Vascular exam: ABSENT: pallor GI/Abdominal exam: PRESENT: normal bowel sounds, soft. ABSENT: distended, guarding, tenderness Rectal exam: PRESENT: deferred Extremities exam: ABSENT: pedal edema Musculoskeletal exam: ABSENT: deformity Neurological exam: PRESENT: alert, awake, oriented to person, oriented to place , oriented to situation, CN II-XII grossly intact Psychiatric exam: PRESENT: anxious Skin exam: PRESENT: dry, intact, warm Results Laboratory Results: 04/01/18 06:31 04/01/18 06:31 03/31/18 19:20 Clean Catch Midstream Urine Culture - Final NO GROWTH 2 DAYS Impressions: Retrograde Pyelogram 03/30/18 00:00 IMPRESSION: Cysto images during left double-J ureteral stent placement Abdomen/Pelvis CT 03/30/18 17:10 IMPRESSION: 8 mm stone in the left proximal ureter causing moderate left hydronephrosis and hydroureter. Qualifiers - * PATIENT BEING DISCHARGED WITH ANY OF THE FOLLOWING DIAGNOSIS: No Plan Discharge Plan: Of note patient has been taking care of her 2-year-old grandson since his mother , her daughter, was taken to an inpatient drug rehab. Last night the child's father who is described as an alcoholic came to get the son. The family is now working with professor of social work for possible investigation. This has the patient very upset and anxious. Time Spent: Less than 30 Minutes
== END 2018-04-02 14:26 | disposition home or self-care (01) | DRG 694 ==
LOC: ER 13:06 → EH 20:53 → OBSVTOIN 20:53 → 2N 03-31 00:09
PROVIDERS: ADMIT Internal Medicine; ATTEND Internal Medicine
PROC: 0T778DZ Dilation of Left Ureter with Intraluminal Device, Via Natural or Artificial Opening Endoscopic (ICD-10-PCS; principal; 2018-03-30 22:30)
DX: N20.1 Calculus of ureter (principal); N13.30 Unspecified hydronephrosis; K92.1 Melena; J44.9 Chronic obstructive pulmonary disease, unspecified; I10 Essential (primary) hypertension; D72.829 Elevated white blood cell count, unspecified; F32.9 Major depressive disorder, single episode, unspecified; F17.210 Nicotine dependence, cigarettes, uncomplicated; I25.2 Old myocardial infarction
CPT/HCPCS: 36415; 74177; 74420; 80048; 80053; 80307; 81001; 82272; 83690; 85025; 85027; 85610; 85730; 87086; 87493; 910; 93005; 93010; 96361; 96374; 96375; 99285; C1758; C1769; C2617; J0330; J0696; J1644; J1885; J2250; J2270; J2405; J2704; J3010; J3490; Q9967; S0164